=== PATIENT | male | born 1990 | race Caucasian/White ===

== ENCOUNTER 2017-11-18 16:06 | Observation (INO) | payer SELFPAY ==
[~2017-11-18] VITALS: Ht 177.8 cm; Wt 81.6 kg
[~2017-11-18 16:06] MED LIST changes: -RIVA15TA PO; -RIVA20TA PO
--- NOTE | 2017-11-18 16:31 | EKG ---
FACILITY: [facility] - [place] PATIENT NAME: SAMIR IRBY : [id number] MR: [id number] V: [id number] EXAM DATE: ORDERING PHYSICIAN: SHEA SANCHES TECHNOLOGIST: UZMA Barcenas Reason : CP Blood Pressure : / mmHG Vent. Rate : 080 BPM Atrial Rate : 080 BPM P-R Int : 166 ms QRS Dur : 088 ms QT Int : 386 ms P-R-T Axes : 046 049 023 degrees QTc Int : 445 ms Normal sinus rhythm Normal ECG No previous ECGs available Confirmed by ABHISHEK BERG ([id number]) on 11/19/2017 2:17:24 PM Referred By: MYRON Confirmed By:ABHISHEK BERG
--- NOTE | 2017-11-18 16:34 | ER Report ---
History and Physical Time Seen By MD: 16:20 Hx. of Stated Complaint: PATIENT WAS SENT TO [facility] FROM URGENT CARE FOR AN ULTRASOUND OF HIS RIGHT LEG. HE WAS FOUNF TO HAVE A LARGE CLOT IN HIS RIGHT LEG HPI/ROS CHIEF COMPLAINT: Right leg pain HISTORY OF PRESENT ILLNESS: 27-year-old male who for the last several days has had pain in his right lower extremity no less 24 hours some swelling of the right lower extremity he went to an outpatient facility they cannot an emergent ultrasound performed which demonstrated a significantly large blood clot basically from his iliac solid onto his leg has no history of clotting disorders factor V Leiden or other medical problems 60 medication O history of long distance travel or additional medical complaints or findings Patient states that for the last couple days swelling is been notably getting worse REVIEW OF SYSTEMS: Respiratory: No cough, no dyspnea. Cardiovascular: No chest pain, no palpitations. Gastrointestinal: No vomiting, no abdominal pain. Musculoskeletal: Right leg pain and swelling Remainder of the 14 system rev: Yes Allergies: Coded Allergies: No Known Drug Allergies (Unverified , 06/14/17) Home Meds Discontinued Scripts Albuterol Sulfate 90 Mcg/Act (PROAIR HFA 90 MCG/ACT) 8.5 Gm Hfa.aer.ad, 2 PUFF IH Q4-6H, #1 INHALER Prov:ALEXYS PRADHAN PA-C 06/14/17 Albuterol Sulfate 0.083% (ALBUTEROL SULFATE 0.083%) 2.5 Mg/3 Ml Vial.neb, 2.5 MG INH Q4-6H Y for SHORTNESS OF BREATH, #20 VIAL Prov:ALEXYS PRADHAN PA-C 06/14/17 Cefdinir 300 Mg Cap (OMNICEF 300 MG CAP (OR EQUIV)) 300 Mg Cap, 300 MG PO BID, # 20 CAP Prov:ALEXYS PRADHAN PA-C 06/14/17 Azithromycin 250 Mg Tab (AZITHROMYCIN 250 MG TAB) 250 Mg Tablet, 0 PO QDAY, #6 TAB Prov:ALEXYS PRADHAN PA-C 06/14/17 Diclofenac Sodium (DICLOFENAC SODIUM) 50 Mg Tablet.dr, 50 MG PO TID Y for prn, # 15 TAB Prov:ALEXYS PRADHAN PA-C 06/14/17 Reviewed Nurses Notes: Yes Old Medical Records Reviewed: Yes Smoking Status: Current: Every Day Smoker Exposure to Second Hand Smoke?: Yes Constitutional Vital Sign - Last 24 Hours 11/18/17 11/18/17 11/18/17 11/18/17 16:13 16:14 16:21 16:36 Temp 98.5 Pulse 82 85 80 Resp 20 B/P (MAP) 122/86 (98) 122/86 Pulse Ox 92 95 96 O2 Delivery Room Air 11/18/17 16:51 Pulse 82 Pulse Ox 94 Physical Exam General Appearance: The patient is alert, has no immediate need for airway protection and no current signs of toxicity. [ ] Eyes: Pupils equal and round no injection. Respiratory: Chest is non tender, lungs are clear to auscultation. Cardiac: regular rate and rhythm [ ] Gastrointestinal: Abdomen is soft and non tender, no masses, bowel sounds normal. Musculoskeletal: Neck: Neck is supple and non tender. Extremities have full range of motion and are non tender. Skin: No rashes or lesions. Right lower extremity shows +1 to +2 pitting edema tenderness to palpation of the calf and inner medial thigh area neurovascular intact otherwise unremarkable DIFFERENTIAL DIAGNOSIS: After history and physical exam differential diagnosis was considered for extensive DVT right lower extremity Medical Decision Making Data Points Result Diagram: 11/18/17 1635 11/18/17 1635 Laboratory Hematology Test 11/18/17 16:35 Red Blood Count 5.00 M/uL (4.00-5.60) Mean Corpuscular Volume 92.0 fL (80.0-96.0) Mean Corpuscular Hemoglobin 32.5 pg (26.0-33.0) Mean Corpuscular Hemoglobin Concent 35.4 g/dL (32.0-36.0) Red Cell Distribution Width 13.0 % (11.5-14.5) Mean Platelet Volume 8.3 fL (7.2-11.1) Neutrophils (%) (Auto) 64.6 % (39.4-72.5) Lymphocytes (%) (Auto) 22.3 % (17.6-49.6) Monocytes (%) (Auto) 10.9 % (4.1-12.4) Eosinophils (%) (Auto) 1.5 % (0.4-6.7) Basophils (%) (Auto) 0.7 % (0.3-1.4) Nucleated RBC Relative Count (auto) 0.0 /100WBC Neutrophils # (Auto) 6.0 K/uL (2.0-7.4) Lymphocytes # (Auto) 2.1 K/uL (1.3-3.6) Monocytes # (Auto) 1.0 K/uL (0.3-1.0) Eosinophils # (Auto) 0.1 K/uL (0.0-0.5) Basophils # (Auto) 0.1 K/uL (0.0-0.1) Nucleated RBC Absolute Count (auto) 0.00 K/uL Sodium Level 140 mmol/L (137-145) Potassium Level 3.8 mmol/L (3.5-5.0) Chloride Level 107 mmol/L (98-107) Carbon Dioxide Level 21 mmol/L (22-30) Blood Urea Nitrogen 13 mg/dl (9-21) Creatinine 0.90 mg/dl (0.66-1.25) Glomerular Filtration Rate Calc > 60.0 Random Glucose 92 mg/dl (75-110) Calcium Level 9.4 mg/dl (8.4-10.2) Total Bilirubin 0.6 mg/dl (0.2-1.3) Aspartate Amino Transf (AST/SGOT) 22 U/L (0-35) Alanine Aminotransferase (ALT/SGPT) 27 U/L (0-56) Alkaline Phosphatase 87 U/L (0-126) Troponin I < 0.012 ng/ml Total Protein 7.3 gm/dl (6.3-8.2) Albumin 4.3 g/dl (3.5-5.0) Chemistry Test 11/18/17 16:35 White Blood Count 9.3 k/uL (4.5-11.0) Red Blood Count 5.00 M/uL (4.00-5.60) Hemoglobin 16.3 g/dL (14.0-18.0) Hematocrit 45.9 % (42.0-52.0) Mean Corpuscular Volume 92.0 fL (80.0-96.0) Mean Corpuscular Hemoglobin 32.5 pg (26.0-33.0) Mean Corpuscular Hemoglobin Concent 35.4 g/dL (32.0-36.0) Red Cell Distribution Width 13.0 % (11.5-14.5) Mean Platelet Volume 8.3 fL (7.2-11.1) Neutrophils (%) (Auto) 64.6 % (39.4-72.5) Lymphocytes (%) (Auto) 22.3 % (17.6-49.6) Monocytes (%) (Auto) 10.9 % (4.1-12.4) Eosinophils (%) (Auto) 1.5 % (0.4-6.7) Basophils (%) (Auto) 0.7 % (0.3-1.4) Nucleated RBC Relative Count (auto) 0.0 /100WBC Neutrophils # (Auto) 6.0 K/uL (2.0-7.4) Lymphocytes # (Auto) 2.1 K/uL (1.3-3.6) Monocytes # (Auto) 1.0 K/uL (0.3-1.0) Eosinophils # (Auto) 0.1 K/uL (0.0-0.5) Basophils # (Auto) 0.1 K/uL (0.0-0.1) Nucleated RBC Absolute Count (auto) 0.00 K/uL Glomerular Filtration Rate Calc > 60.0 Calcium Level 9.4 mg/dl (8.4-10.2) Total Bilirubin 0.6 mg/dl (0.2-1.3) Aspartate Amino Transf (AST/SGOT) 22 U/L (0-35) Alanine Aminotransferase (ALT/SGPT) 27 U/L (0-56) Alkaline Phosphatase 87 U/L (0-126) Troponin I < 0.012 ng/ml Total Protein 7.3 gm/dl (6.3-8.2) Albumin 4.3 g/dl (3.5-5.0) Coagulation Test 11/18/17 16:35 ED Course/Re-evaluation ED Course ED clinical course 27-year-old male presented with a known diagnosis of an ultrasound confirmed DVT of the entire right lower extremity extensive from the central, and iliac all the way down to the distal calf veins anticoagulations panel blood work is been performed started him on Lovenox in the emergency Department due to the extensive nature to be admitted and worked up as an inpatient Decision to Disposition Date: Nov 18, 2017 Decision to Disposition Time: 17:22 Depart Departure Latest Vital Signs Vital Signs Date Time Temp Pulse Resp B/P (MAP) Pulse Ox O2 Delivery O2 Flow Rate FiO2 11/18/17 16:51 82 94 11/18/17 16:14 98.5 20 122/86 Room Air Impression: Primary Impression: DVT (deep venous thrombosis) Condition: Improved Disposition: Admitted from ER New Scripts No Active Prescriptions or Reported Meds SHEA SANCHES MD Nov 18, 2017 16:34
[2017-11-18 16:44] LABS: PLATELET COUNT, AUTOMATED 142 K/uL (150-450)
--- NOTE | 2017-11-18 17:14 | RADIOLOGY IMAGING REPORT ---
FACILITY: [facility] PATIENT NAME: Dennis Ashford : 1990 MR: [id number] V: [id number] EXAM DATE: ORDERING PHYSICIAN: SHEA SANCHES TECHNOLOGIST: Location: [facility] [place] Patient: Dennis Ashford : 1990 Visit/Account:[id number] Date of Sevice: 11/18/2017 2 VIEWS CHEST INDICATION: Right leg pain for 2 weeks. COMPARISON: 06/14/2017. FINDINGS: Cardiomediastinal silhouette and pulmonary vessels within normal limits. Improved aeration from previous examination. No areas of consolidation. There is no pneumothorax or pleural effusion. No nodule. Stable small calcific density adjacent to the right suprahilar region is stable. Upper abdomen is unremarkable. No acute bony abnormality. IMPRESSION: 1. No acute cardiopulmonary process. Report Dictated By: Laron Callaway at 11/18/2017 5:08 PM Report E-Signed By: Laron Callaway at 11/18/2017 5:10 PM WSN:[id number]
[2017-11-18 17:51] VITALS: BP 114/77
[2017-11-18] MEDS ORDERED: ACETAMINOPHEN 325 MG TAB PO PRN (18:35)
[2017-11-18 19:25] VITALS: BP 116/75
--- NOTE | 2017-11-18 19:40 | History & Physical ---
History of Present Illness Chief Complaint R-leg pain and swelling History of Present Illness Mr. Ashford is a 27-year-old male without any significant PMH except bilateral reducible inguinal hernias who has been having R-leg pain for the last few days. For the last 24 hours he has been having swelling of his R-leg. He went to an outpatient facility and had an emergent ultrasound performed which demonstrated a significantly large Iliofemoral blood clot. He has no history of clotting disorders factor V Leiden or other medical problems. No history of long distance travel or additional medical complaints. He works at the [employer] and performs physical work. History Home Meds Discontinued Scripts Albuterol Sulfate 90 Mcg/Act (PROAIR HFA 90 MCG/ACT) 8.5 Gm Hfa.aer.ad, 2 PUFF IH Q4-6H, #1 INHALER Prov:ALEXYS PRADHAN PA-C 06/14/17 Albuterol Sulfate 0.083% (ALBUTEROL SULFATE 0.083%) 2.5 Mg/3 Ml Vial.neb, 2.5 MG INH Q4-6H Y for SHORTNESS OF BREATH, #20 VIAL Prov:ALEXYS PRADHAN PA-C 06/14/17 Cefdinir 300 Mg Cap (OMNICEF 300 MG CAP (OR EQUIV)) 300 Mg Cap, 300 MG PO BID, # 20 CAP Prov:ALEXYS PRADHAN PA-C 06/14/17 Azithromycin 250 Mg Tab (AZITHROMYCIN 250 MG TAB) 250 Mg Tablet, 0 PO QDAY, #6 TAB Prov:ALEXYS PRADHAN PA-C 06/14/17 Diclofenac Sodium (DICLOFENAC SODIUM) 50 Mg Tablet.dr, 50 MG PO TID Y for prn, # 15 TAB Prov:ALEXYS PRADHAN PA-C 06/14/17 Allergies: Coded Allergies: No Known Drug Allergies (Unverified , 06/14/17) Patient History: Patient reports no known family medical history. Smoking Status: Current: Every Day Smoker Exposure to Second Hand Smoke?: Yes Social Drug Use: Currently Social Drugs: Marijuana Review of Systems Constitutional: No Fever, No Chills Cardiovascular: No Chest Pain, No Palpitations Respiratory: No Shortness of Breath, No Cough Gastrointestinal: No Nausea, No Vomiting, No Diarrhea, No Constipation, No Abdominal Pain Genitourinary: No Dysuria, No Hematuria Musculoskeletal: Pain, No Sprain, No Strain Psychiatric: No Depression, No Anxiety Exam Vital Signs Vital Signs Date Time Temp Pulse Resp B/P (MAP) Pulse Ox O2 Delivery O2 Flow Rate FiO2 11/18/17 17:51 98.5 78 12 114/77 (89) 93 Room Air General Appearance: Alert, Awake, No Acute Distress, Afebrile Neuro: No Gross deficits Eyes: PERRLA ENT: Normal Cardiovascular: Normal Rhythm & Peripheral Pulses Respiratory: No Respiratory Distress GI: Abd Soft and Non-Tender Extremities: Soft and Non Tender (Tender R-LE with edema) Integumentary: Skin Intact without Lesion / Mass Psych: Alert & Oriented X3 Medical Decision Making Data Points Result Diagram: 11/18/17 1635 11/18/17 1635 EKG / Imaging Imaging reviewed Pre-Admit Course Medical Record Review: Yes Assessment and Plan Problems: (1) DVT (deep venous thrombosis) Status: Acute Assessment & Plan: I will admit the patient to medical floor for further evaluation and management I will start him on Lovenox 80mg subQ q 12h I will also start him on Xarelto 15mg po bid for 21 days and then 20mg po qd. ( I have explained the treatment options to the patient and he wanted to take Xarelto.) I will get Serum protein C and S, Antiphospholipid antibodies and Factor V Leiden level (2) Bilateral inguinal hernia (BIH) Status: Chronic Assessment & Plan: I have recommended surgical option for his hernias and he understood. Condition stable Time Spent on Plan of Care: < 30 min Venous Thromboembolism VTE Risk Physician Assess for VTE Risk: Yes Patient's VTE Risk: High Antithrombotics Is Pt On Any Antithrombotics?: No Exam Sepsis Risk: No Definite Risk Problem Qualifiers (1) DVT (deep venous thrombosis): DVT location: lower extremity Laterality: right CHETAN PATTEN MD Nov 18, 2017 19:40
[2017-11-18] MEDS: NS(*) 0.9% 1000 ML BAG 1,000 ML IV PRN (20:35)
[2017-11-18] MEDS: RIVAROXABAN 10 MG TAB PO SCH (20:35)
[2017-11-18] MEDS ORDERED: ENOXAPARIN 100 MG/ML SYR SC SCH (21:00)
[2017-11-18 23:31] VITALS: BP 101/75
[2017-11-19] MEDS ORDERED: ENOXAPARIN 100 MG/ML SYR SC SCH (05:00)
[2017-11-19 05:23] VITALS: BP 106/76
[2017-11-19] MEDS: NS(*) 0.9% 1000 ML BAG 1,000 ML IV PRN (05:23)
[2017-11-19 07:09] VITALS: BP 122/86
[2017-11-19] MEDS: RIVAROXABAN 10 MG TAB PO SCH (08:18)
[2017-11-19] MEDS ORDERED: RIVA15TA PO (11:11)
[2017-11-19] MEDS ORDERED: RIVA20TA PO (11:11)
[2017-11-19 11:18] VITALS: Ht 177.8 cm; Wt 81.6 kg
--- NOTE | 2017-11-19 11:24 | Hospitalist Depart ---
Discharge Summary Reason for Hosp/Final Diag: (1) DVT (deep venous thrombosis) Status: Acute Hospital Course & Plan: He did present with pain and swelling to the right leg. An ultrasound detected the presence of an extensive clot in the right leg. He has been started on treatment with Xarelto. He will need to be on loading dose of 15mg twice daily for 21 days and then convert to 20mg daily. He should remain on anticoagulation for a minimum of 3 months. Departure Latest Vital Signs Vital Signs 11/19/17 07:09 Temp 98.6 Pulse 70 Resp 18 B/P (MAP) 122/86 (98) Pulse Ox 96 O2 Delivery Room Air Weight (Pounds): 180 Result Diagram: 11/18/17 1635 11/18/17 1635 Condition: Improved Discharge: Home, Self Care Discharge Instructions Home Meds Active Scripts Rivaroxaban 20 Mg (XARELTO 20 MG) 20 Mg Tablet, 20 MG PO QDAY, #30 TAB Begin after initial loading dose. Prov:MORENAABHISHEK 11/19/17 Rivaroxaban 15 Mg (XARELTO 15 MG) 15 Mg Tablet, 15 MG PO BIDBS, #42 TAB Prov:ABHISHEK BERG DO 11/19/17 Discontinued Scripts Albuterol Sulfate 90 Mcg/Act (PROAIR HFA 90 MCG/ACT) 8.5 Gm Hfa.aer.ad, 2 PUFF IH Q4-6H, #1 INHALER Prov:ALEXYS PRADHAN PA-C 06/14/17 Albuterol Sulfate 0.083% (ALBUTEROL SULFATE 0.083%) 2.5 Mg/3 Ml Vial.neb, 2.5 MG INH Q4-6H Y for SHORTNESS OF BREATH, #20 VIAL Prov:ALEXYS PRADHAN PA-C 06/14/17 Cefdinir 300 Mg Cap (OMNICEF 300 MG CAP (OR EQUIV)) 300 Mg Cap, 300 MG PO BID, # 20 CAP Prov:ALEXYS PRADHAN PA-C 06/14/17 Azithromycin 250 Mg Tab (AZITHROMYCIN 250 MG TAB) 250 Mg Tablet, 0 PO QDAY, #6 TAB Prov:ALEXYS PRADHAN PA-C 06/14/17 Diclofenac Sodium (DICLOFENAC SODIUM) 50 Mg Tablet.dr, 50 MG PO TID Y for prn, # 15 TAB Prov:ALEXYS PRADHAN PA-C 06/14/17 Diet: Regular Activity: As Tolerated Venous Thromboembolism Antithrombotics Is Pt On Any Antithrombotics?: No Problem Qualifiers (1) DVT (deep venous thrombosis): DVT location: lower extremity Laterality: right ABHISHEK BERG DO Nov 19, 2017 11:24
[2017-12-10] MEDS ORDERED: RIVAROXABAN 10 MG TAB PO SCH (09:00)
== END 2017-11-19 11:11 | disposition home or self-care (01) ==
LOC: ER 16:18 → MED 17:28 → INTOOBSV 17:28
PROVIDERS: ADMIT Specialist; ATTEND Specialist
DX: I82.491 Acute embolism and thrombosis of other specified deep vein of right lower extremity (principal); K40.20 Bilateral inguinal hernia, without obstruction or gangrene, not specified as recurrent
CPT/HCPCS: 36415; 71046; 81241; 84484; 85025; 85300; 85303; 85306; 85379; 85384; 85610; 85730; 86147; 93005; 96372; 99285; G0378; J1650; J7030; 82040; 82247; 82310; 82374; 82435; 82565; 82947; 84075; 84132; 84155; 84295; 84450; 84460; 84520

== ENCOUNTER → 2017-11-18 | Outpatient (CLI) | payer SELFPAY ==
[~2017-11-18] MED LIST: ALBU2.5V36 INH; ALBU8.5H IH; AZIT-18 PO; CEF300 PO; DICL-192 PO; RIVA15TA PO; RIVA20TA PO
--- NOTE | 2017-11-18 16:38 | RADIOLOGY IMAGING REPORT ---
FACILITY: [facility] - [place] PATIENT NAME: Dennis Ashford : 1990 MR: [id number] V: [id number] EXAM DATE: ORDERING PHYSICIAN: VICKY CLEMENTS TECHNOLOGIST: Location: [facility] Patient: Dennis Ashford : 1990 Visit/Account:[id number] Date of Sevice: 11/18/2017 Exam type: VENOUS DOPP LOW RIGHT EXTREMIT History: Pain and swelling right lower extremity Comparison: None. Findings: There is intraluminal thrombus identified in the distal right common femoral vein although not the gr eater saphenous vein. The thrombus enters the right superficial femoral vein popliteal vein posterio r tibial vein peroneal vein. The veins were noncompressible. IMPRESSION: 1. Extensive DVT throughout the right lower extremity vein extending from the right common femoral v ein distally into the calf veins. Results were called to VICKY CLEMENTS at 11/18/2017 4:00 PM. Report Dictated By: Catalina Kelly MD at 11/18/2017 4:33 PM Report E-Signed By: Catalina Kelly MD at 11/18/2017 4:35 PM WSN:[id number]
== END ==
LOC: US 15:28
PROVIDERS: ATTEND Physician Assistant
DX: I82.491 Acute embolism and thrombosis of other specified deep vein of right lower extremity (principal)

== ENCOUNTER 2017-12-01 13:56 | Emergency (ER) | payer SELFPAY ==
[2017-11-19 11:18] VITALS: Wt 81.6 kg
--- NOTE | 2017-12-01 14:01 | ER Report ---
History and Physical Time Seen By MD: 14:00 HPI/ROS CHIEF COMPLAINT: Chest pain HISTORY OF PRESENT ILLNESS: This is a 27-year-old male who presents to the emergency department for right-sided chest pain. Patient states that he was diagnosed with a DVT in his right leg approximately 2 weeks ago, was placed on Xarelto, has been doing okay. Then over the last couple days he has had an increase in right-sided chest discomfort and now he has increased right-sided chest pain with deep inspiration, with some shortness of breath. Patient states that he was instructed to return to the emergency department with any other changes in his symptoms. Patient also states that he's had an increase pressure to his right leg, concentrated over the right upper leg. Patient denies aches, chills, nausea, vomiting, diarrhea. Patient does state that he will periodically cough up some clear to greenish phlegm. Denies headaches. REVIEW OF SYSTEMS: Constitutional: No fever, no chills. Eyes: No discharge. ENT: No sore throat. Cardiovascular: As above. Respiratory: As above. Gastrointestinal: No abdominal pain, no vomiting. Genitourinary: No hematuria. Musculoskeletal: As above. Skin: No rashes. Neurological: No headache. Allergies: Coded Allergies: No Known Drug Allergies (Unverified , 12/01/17) Home Meds Active Scripts Rivaroxaban 20 Mg (XARELTO 20 MG) 20 Mg Tablet, 20 MG PO QDAY, #30 TAB Begin after initial loading dose. Prov:ABHISHEK BERG 11/19/17 Rivaroxaban 15 Mg (XARELTO 15 MG) 15 Mg Tablet, 15 MG PO BIDBS, #42 TAB Prov:MORENAABHISHEK BAJWA DO 11/19/17 Past Medical/Surgical History The patient has a past medical and surgical history of DVT, bilateral inguinal hernias, fractured collar bone, wears glasses, pneumonia. Reviewed Nurses Notes: Yes Smoking Status: Current: Every Day Smoker Exposure to Second Hand Smoke?: Yes Constitutional Vital Sign - Last 24 Hours 12/01/17 12/01/17 12/01/17 12/01/17 13:56 14:00 14:02 14:11 Temp 98.3 Pulse ??? 74 64 Resp 14 15 B/P (MAP) 129/85 129/85 (100) Pulse Ox 94 96 O2 Delivery Room Air 12/01/17 12/01/17 12/01/17 12/01/17 14:15 14:26 14:30 15:00 Pulse 0 B/P (MAP) 122/87 (99) 121/81 (94) 121/79 (93) 12/01/17 12/01/17 12/01/17 12/01/17 15:15 15:30 15:45 16:00 B/P (MAP) 120/87 (98) 129/80 (96) 126/81 (96) 134/101 (112) 12/01/17 12/01/17 12/01/17 12/01/17 16:15 16:30 16:35 16:45 Pulse ??? B/P (MAP) 124/86 (99) 123/87 (99) 117/72 (87) 12/01/17 12/01/17 12/01/17 12/01/17 16:50 17:00 17:05 17:15 Pulse ? B/P (MAP) 121/86 (98) 50/38 (42) 12/01/17 12/01/17 12/01/17 17:20 17:30 17:35 Pulse ? B/P (MAP) 118/85 (96) Physical Exam General Appearance: The patient is alert, has no immediate need for airway protection and no signs of toxicity. Eyes: Pupils equal and round no pallor or injection. ENT, Mouth: Mucous membranes are moist. Respiratory: There are no retractions, lungs are clear to auscultation. Cardiovascular: Regular rate and rhythm, no murmurs, clicks or rubs. Gastrointestinal: Abdomen is soft and non tender, no masses, bowel sounds normal. Neurological: Alert and oriented 4. Moving all extremities. Following all commands. No focal neuro deficits. Skin: Warm and dry, no rashes. Musculoskeletal: Neck is supple non tender. Extremities are painful to the right medial thigh with palpation, all extremities have full range of motion. CMS intact distal to the DVT. Capillary Refill less than 3 seconds. DIFFERENTIAL DIAGNOSIS: After history and physical exam differential diagnosis was considered for chest pain including but not limited to myocardial ischemia, pericarditis pulmonary embolus, chest wall pain, pleural inflammation and pulmonary infectious causes. Medical Decision Making Data Points Result Diagram: 12/01/17 1405 12/01/17 1405 Laboratory Hematology Test 12/01/17 14:05 12/01/17 14:55 12/01/17 16:10 Red Blood Count 4.83 M/uL (4.00-5.60) Mean Corpuscular Volume 91.6 fL (80.0-96.0) Mean Corpuscular Hemoglobin 31.8 pg (26.0-33.0) Mean Corpuscular Hemoglobin Concent 34.7 g/dL (32.0-36.0) Red Cell Distribution Width 12.9 % (11.5-14.5) Mean Platelet Volume 8.1 fL (7.2-11.1) Neutrophils (%) (Auto) 64.9 % (39.4-72.5) Lymphocytes (%) (Auto) 25.5 % (17.6-49.6) Monocytes (%) (Auto) 8.0 % (4.1-12.4) Eosinophils (%) (Auto) 0.9 % (0.4-6.7) Basophils (%) (Auto) 0.7 % (0.3-1.4) Nucleated RBC Relative Count (auto) 0.0 /100WBC Neutrophils # (Auto) 5.6 K/uL (2.0-7.4) Lymphocytes # (Auto) 2.2 K/uL (1.3-3.6) Monocytes # (Auto) 0.7 K/uL (0.3-1.0) Eosinophils # (Auto) 0.1 K/uL (0.0-0.5) Basophils # (Auto) 0.1 K/uL (0.0-0.1) Nucleated RBC Absolute Count (auto) 0.00 K/uL Sodium Level 143 mmol/L (137-145) Potassium Level 3.5 mmol/L (3.5-5.0) Chloride Level 106 mmol/L (98-107) Carbon Dioxide Level 20 mmol/L (22-30) Blood Urea Nitrogen 12 mg/dl (9-21) Creatinine 0.90 mg/dl (0.66-1.25) Glomerular Filtration Rate Calc > 60.0 Random Glucose 112 mg/dl (75-110) Calcium Level 9.8 mg/dl (8.4-10.2) Total Bilirubin 0.5 mg/dl (0.2-1.3) Aspartate Amino Transf (AST/SGOT) 30 U/L (0-35) Alanine Aminotransferase (ALT/SGPT) 28 U/L (0-56) Alkaline Phosphatase 83 U/L (0-126) Troponin I < 0.012 ng/ml Total Protein 7.2 gm/dl (6.3-8.2) Albumin 4.4 g/dl (3.5-5.0) Urine Color Yellow Urine Clarity Clear Urine pH 7.0 pH (4.8-9.5) Urine Specific [place] 1.027 Urine Protein Negative mg/dL (NEGATIVE) Urine Glucose (UA) Negative mg/dL (NEGATIVE) Urine Ketones Trace mg/dL (NEGATIVE) Urine Blood Small (NEGATIVE) Urine Nitrite Negative (NEGATIVE) Urine Bilirubin Negative (NEGATIVE) Urine Urobilinogen Negative mg/dL (0.2-1.9) Urine Leukocyte Esterase Negative (NEGATIVE) Urine RBC 15 /HPF (0-2/HPF) Urine WBC <1 /HPF (0-5/HPF) Urine Squamous Epithelial Cells None /LPF (</=FEW) Urine Bacteria Negative /HPF (NONE-FEW) Urine Mucus None /HPF (NONE-FEW) Chemistry Test 12/01/17 14:05 12/01/17 14:55 12/01/17 16:10 White Blood Count 8.7 k/uL (4.5-11.0) Red Blood Count 4.83 M/uL (4.00-5.60) Hemoglobin 15.4 g/dL (14.0-18.0) Hematocrit 44.3 % (42.0-52.0) Mean Corpuscular Volume 91.6 fL (80.0-96.0) Mean Corpuscular Hemoglobin 31.8 pg (26.0-33.0) Mean Corpuscular Hemoglobin Concent 34.7 g/dL (32.0-36.0) Red Cell Distribution Width 12.9 % (11.5-14.5) Platelet Count 219 K/uL (150-450) Mean Platelet Volume 8.1 fL (7.2-11.1) Neutrophils (%) (Auto) 64.9 % (39.4-72.5) Lymphocytes (%) (Auto) 25.5 % (17.6-49.6) Monocytes (%) (Auto) 8.0 % (4.1-12.4) Eosinophils (%) (Auto) 0.9 % (0.4-6.7) Basophils (%) (Auto) 0.7 % (0.3-1.4) Nucleated RBC Relative Count (auto) 0.0 /100WBC Neutrophils # (Auto) 5.6 K/uL (2.0-7.4) Lymphocytes # (Auto) 2.2 K/uL (1.3-3.6) Monocytes # (Auto) 0.7 K/uL (0.3-1.0) Eosinophils # (Auto) 0.1 K/uL (0.0-0.5) Basophils # (Auto) 0.1 K/uL (0.0-0.1) Nucleated RBC Absolute Count (auto) 0.00 K/uL Glomerular Filtration Rate Calc > 60.0 Calcium Level 9.8 mg/dl (8.4-10.2) Total Bilirubin 0.5 mg/dl (0.2-1.3) Aspartate Amino Transf (AST/SGOT) 30 U/L (0-35) Alanine Aminotransferase (ALT/SGPT) 28 U/L (0-56) Alkaline Phosphatase 83 U/L (0-126) Troponin I < 0.012 ng/ml Total Protein 7.2 gm/dl (6.3-8.2) Albumin 4.4 g/dl (3.5-5.0) Urine Color Yellow Urine Clarity Clear Urine pH 7.0 pH (4.8-9.5) Urine Specific [place] 1.027 Urine Protein Negative mg/dL (NEGATIVE) Urine Glucose (UA) Negative mg/dL (NEGATIVE) Urine Ketones Trace mg/dL (NEGATIVE) Urine Blood Small (NEGATIVE) Urine Nitrite Negative (NEGATIVE) Urine Bilirubin Negative (NEGATIVE) Urine Urobilinogen Negative mg/dL (0.2-1.9) Urine Leukocyte Esterase Negative (NEGATIVE) Urine RBC 15 /HPF (0-2/HPF) Urine WBC <1 /HPF (0-5/HPF) Urine Squamous Epithelial Cells None /LPF (</=FEW) Urine Bacteria Negative /HPF (NONE-FEW) Urine Mucus None /HPF (NONE-FEW) Coagulation Test 12/01/17 16:10 Urinalysis Test 12/01/17 14:55 Urine Color Yellow Urine Clarity Clear Urine pH 7.0 pH (4.8-9.5) Urine Specific [place] 1.027 Urine Protein Negative mg/dL (NEGATIVE) Urine Glucose (UA) Negative mg/dL (NEGATIVE) Urine Ketones Trace mg/dL (NEGATIVE) Urine Blood Small (NEGATIVE) Urine Nitrite Negative (NEGATIVE) Urine Bilirubin Negative (NEGATIVE) Urine Urobilinogen Negative mg/dL (0.2-1.9) Urine Leukocyte Esterase Negative (NEGATIVE) Urine RBC 15 /HPF (0-2/HPF) Urine WBC <1 /HPF (0-5/HPF) Urine Squamous Epithelial Cells None /LPF (</=FEW) Urine Bacteria Negative /HPF (NONE-FEW) Urine Mucus None /HPF (NONE-FEW) EKG/Imaging EKG Interpretation 12 lead EKG: Time of EKG 1423. Rhythm: Sinus bradycardia with marked sinus arrhythmia, ventricular rate 57 bpm. Bois D Arc: normal QRS: normal ST segments: No ST depression or elevation identified. [place] [facility] [place] Dennis [place] : 1990 Visit/Account:[id number] Date of Sevice: 12/01/2017 EXAMINATION: CTA Chest With Contrast 12/01/2017 2:16 PM HISTORY: Chest pain. Known DVT. Evaluate for PE. TECHNIQUE: Pulmonary embolus protocol - Thin-slice axial imaging of the chest was performed during maximal pulmonary arterial opacification with intravenous nonionic iodinated contrast. 3D coronal slab MIPs and 2D reconstructions in the coronal and sagittal planes were performed to aid in pulmonary embolus detection. [employer] images have been stored on PACS. Contrast: 75 mL of IV Isovue 370. One of the following dose optimization techniques was utilized in the performance of this exam: Automated exposure control; adjustment of the mA and/ or kV according to the patient's size; or use of an iterative reconstruction technique. Specific details can be referenced in the facility's radiology CT exam operational policy. COMPARISON STUDIES: Positive right leg venous Doppler for DVT 11/10/2017. Chest x-ray 11/10/2017. FINDINGS: Angiographic Findings: Pulmonary arteries: Small filling defect and a right upper lobe pulmonary artery (series 4, images 108 through 118), probably with minimal involvement in the right vessel extending behind this. Indistinct hypoenhancing area along the branch point in the right lower lobe pulmonary arterial vasculature (image 197 through 200) with this vessel leading to a small pleural-parenchymal density in the posterior base. Small linear hypoenhancing focus in left lower lobe vasculature (image 169 through 184). Other vasculature: negative Additional non-angiographic findings: Lungs / pleura: Small pleural-parenchymal density in the posterior right base, likely an infarct. Mediastinum / fady: negative Heart / pericardium: RV LV ratio below 1. Musculoskeletal / Body wall: negative Lymph node assessment: negative Lower neck: negative Upper abdomen: Hypodensity of a partially imaged cortical cyst in the left kidney. IMPRESSION: Positive CTA evaluation for PE with a small embolic burden involving right upper , right lower, and left lower lobes. 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 Report Dictated By: Thong Obrien MD at 12/01/2017 2:59 PM Report E-Signed By: Thong Obrien MD at 12/01/2017 3:15 PM WSN:[id number] ED Course/Re-evaluation Clinical Indication for ER IV: IV Access ED Course The patient was admitted to room. History and physical were obtained. Differential diagnoses were considered. A CBC, CMP and troponin were obtained. Lab studies unremarkable. Negative troponin. EKG showing sinus bradycardia, with a sinus arrhythmia, otherwise unremarkable. CT of the chest, positive CTA evaluation for PE with a small embolic burden involving right upper, right lower , and left lower lobes. 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 I did review these results with the patient's and did explain to him and I'm concerned that he had a outpatient failure on Xarelto is also concerned that he may need either a change in medications or placement of an IVC filter. I did explain to him that we do not place filters at [facility] as noted below and will need to be transferred to another facility. He expressed understanding. I did speak with [facility], Dr. Alex the hospitalist and Dr. Degroot the vascular surgeon, they have accepted them into there services and he will be transferred to [facility] via ground ambulance. Coag studies were drawn, but not resulted. . 12/01/2017 3:42:14 pm I did speak with Dr. Maguire regarding the patient's case he said that he does not do these filters anymore and would be good to consult with the hospitalist get their input and potentially the patient may need to be sent out. 12/01/2017 3:53:20 pm did speak with Dr. Stephany Sahu regarding the patient's case he wasn't sure if the patient would need a filter or direct therapy however he suggested sending the patient to either [place] or [facility] for further evaluation and possible intervention. 12/01/2017 4:28:39 pm I did speak with Dr. Degroot at [facility], the vascular surgeon who will be happy to see the patient and evaluate him for either med changes or vascular intervention. I also spoke with Dr. Alex the hospitalist at [facility] who has accepted the patient into his services and will consult with Dr. Hathaway. The patient has been updated and is aware that we will be transferring him via ground ambulance. Decision to Disposition Date: Dec 01, 2017 Decision to Disposition Time: 16:28 Depart Departure Latest Vital Signs Vital Signs Date Time Temp Pulse Resp B/P (MAP) Pulse Ox O2 Delivery O2 Flow Rate FiO2 12/01/17 17:35 ??? 12/01/17 17:30 118/85 (96) 12/01/17 14:11 15 96 12/01/17 14:00 98.3 Room Air Impression: Primary Impression: Pulmonary emboli Additional Impression: DVT (deep venous thrombosis) Condition: Improved Disposition: [facility] TO [facility] Problem Qualifiers Primary Impression: Pulmonary emboli Pulmonary embolism type: other Chronicity: acute Acute cor pulmonale presence: without acute cor pulmonale Qualified Codes: I26.99 - Other pulmonary embolism without acute cor pulmonale Additional Impression: DVT (deep venous thrombosis) DVT location: lower extremity Affected thrombotic vein of extremity: femoral Chronicity: acute Laterality: right Qualified Codes: I82.411 - Acute embolism and thrombosis of right femoral vein JHONY BAKER [employer]ALE TRAINER-BC Dec 01, 2017 14:01
[2017-12-01 14:28] LABS: PLATELET COUNT, AUTOMATED 219 K/uL (150-450)
[2017-12-01] MEDS ORDERED: IOPAMIDOL 76% 75 ML INFUS BTL 75 ML ONE (14:38)
[2017-12-01] MEDS ORDERED: NS(*) 0.9% 10 ML VIAL 0 ML ONE (14:38)
[2017-12-01] MEDS ORDERED: NS 0.9% 150 ML BAG 150 ML ONE (14:43)
--- NOTE | 2017-12-01 14:46 | EKG ---
FACILITY: [facility] PATIENT NAME: SAMIR IRBY : [id number] MR: [id number] V: [id number] EXAM DATE: ORDERING PHYSICIAN: JHONY BAKER TECHNOLOGIST: SAÚL Barcenas Reason : Blood Pressure : / mmHG Vent. Rate : 057 BPM Atrial Rate : 057 BPM P-R Int : 166 ms QRS Dur : 100 ms QT Int : 434 ms P-R-T Axes : 045 050 033 degrees QTc Int : 422 ms Appears to be sinus rhythm with sinus arrhythmia Nonspecific interventricular conduction delay No acute appearing ST-T findings Confirmed by EDMOND ANN [id number] on 12/01/2017 5:33:54 PM Referred By: ADAMARIS Confirmed By:EDMOND ANN
--- NOTE | 2017-12-01 15:18 | RADIOLOGY IMAGING REPORT ---
FACILITY: [facility] PATIENT NAME: Dennis Ashford : 1990 MR: [id number] V: [id number] EXAM DATE: ORDERING PHYSICIAN: JHONY BAKER TECHNOLOGIST: Location: [facility] - [place] Patient: Dennis Ashford : 1990 Visit/Account:[id number] Date of Sevice: 12/01/2017 EXAMINATION: CTA Chest With Contrast 12/01/2017 2:16 PM HISTORY: Chest pain. Known DVT. Evaluate for PE. TECHNIQUE: Pulmonary embolus protocol - Thin-slice axial imaging of the chest was performed during maximal pulmonary arterial opacification with intravenous nonionic iodinated contrast. 3D coronal sla b MIPs and 2D reconstructions in the coronal and sagittal planes were performed to aid in pulmonary e mbolus detection. [employer] images have been stored on PACS. Contrast: 75 mL of IV Isovue 370. One of the following dose optimization techniques was utilized in the performance of this exam: Autom ated exposure control; adjustment of the mA and/or kV according to the patient's size; or use of an i terative reconstruction technique. Specific details can be referenced in the facility's radiology C T exam operational policy. COMPARISON STUDIES: Positive right leg venous Doppler for DVT 11/10/2017. Chest x-ray 11/10/2017. FINDINGS: Angiographic Findings: Pulmonary arteries: Small filling defect and a right upper lobe pulmonary artery (series 4, images 10 8 through 118), probably with minimal involvement in the right vessel extending behind this. Indistin ct hypoenhancing area along the branch point in the right lower lobe pulmonary arterial vasculature ( image 197 through 200) with this vessel leading to a small pleural-parenchymal density in the posteri or base. Small linear hypoenhancing focus in left lower lobe vasculature (image 169 through 184). Other vasculature: negative Additional non-angiographic findings: Lungs / pleura: Small pleural-parenchymal density in the posterior right base, likely an infarct. Mediastinum / fady: negative Heart / pericardium: RV LV ratio below 1. Musculoskeletal / Body wall: negative Lymph node assessment: negative Lower neck: negative Upper abdomen: Hypodensity of a partially imaged cortical cyst in the left kidney. IMPRESSION: Positive CTA evaluation for PE with a small embolic burden involving right upper, right lower, and le ft lower lobes. 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 Report Dictated By: Thong Obrien MD at 12/01/2017 2:59 PM Report E-Signed By: Thong Obrien MD at 12/01/2017 3:15 PM WSN:[id number]
[2017-12-01 17:30] VITALS: BP 118/85
== END 2017-12-01 17:57 | disposition short-term general hospital (02) ==
LOC: ER 14:00
DX: I26.99 Other pulmonary embolism without acute cor pulmonale (principal); I82.411 Acute embolism and thrombosis of right femoral vein; I49.9 Cardiac arrhythmia, unspecified
CPT/HCPCS: 71275; 81001; 81241; 81291; 83090; 84484; 85025; 85300; 85303; 85306; 85610; 85613; 85730; 86147; 93005; 99285; Q9967; 82040; 82247; 82310; 82374; 82435; 82565; 82947; 84075; 84132; 84155; 84295; 84450; 84460; 84520

== ENCOUNTER → 2017-12-01 | Outpatient (CLI) | payer SELFPAY ==
[2017-11-19 11:18] VITALS: BMI 25.8
[~2017-12-01] MED LIST changes: +RIVA15TA PO; +RIVA20TA PO
== END ==
LOC: AMB 17:41
PROVIDERS: ATTEND Nurse Practitioner
DX: R06.00 Dyspnea, unspecified (principal); I82.401 Acute embolism and thrombosis of unspecified deep veins of right lower extremity; I26.99 Other pulmonary embolism without acute cor pulmonale
CPT/HCPCS: A0425; A0426